=== PATIENT | male | born 1950 ===

== ENCOUNTER 2017-11-11 08:51 | Emergency (ER) | payer BC, OTHER ==
[2017-11-11 09:25] VITALS: BP 143/86
--- NOTE | 2017-11-11 09:41 | UC ---
Throat Pain/Nasal Lucio HPI - HPI Summary HPI Summary: Right sinus pain. He had uri about 5 days ago with chills and congestion. He felt better and then has had right sinus pain. He also had right upper molar dental trauma but there is no hot or cold sensitivity there. NO fever. - History of Current Complaint Chief Complaint: UCRespiratory Stated Complaint: SINUS Time Seen by Provider: 11/11/17 09:07 Hx Obtained From: Patient Onset/Duration: Gradual Onset, Lasting Days Severity: Moderate Pain Intensity: 5 Cough: None Associated Signs & Symptoms: Positive: Sinus Discomfort. Negative: Dysphagia, FB Sensation, Fever, Vomiting, Rash - Allergies/Home Medications Allergies/Adverse Reactions: Allergies Allergy/AdvReac Type Severity Reaction Status Date / Time No Known Allergies Allergy Verified 11/11/17 09:08 Home Medications: Home Medications Acetaminophen [Acetaminophen Extra Stren] 1,000 mg PO Q6H PRN 11/11/17 [History Confirmed 11/11/17] Aspirin [Aspirin 81 MG TAB] 81 mg PO QPM 11/11/17 [History Confirmed 11/11/17] Atorvastatin* [Lipitor*] 20 mg PO QPM 11/11/17 [History Confirmed 11/11/17] Cholecalciferol [Vitamin D] 1,000 unit PO DAILY 11/11/17 [History Confirmed ] Irbesartan [Avapro] 150 mg PO QPM 11/11/17 [History Confirmed 11/11/17] Multivitamins/Minerals TAB* [Theragran/minerals TAB*] 1 tab PO DAILY 11/11/17 [ History Confirmed 11/11/17] Vado-3 Fatty Acids [Fish Oil] 2,400 mg PO DAILY 11/11/17 [History Confirmed ] Phenylephrine HCl (Oral) [Sudafed PE Congestion] 10 mg PO Q6H PRN 11/11/17 [ History Confirmed 11/11/17] PMH/Surg Hx/FS Hx/Imm Hx Previously Healthy: No - htn - Surgical History Surgical History: None Surgery Procedure, Year, and Place: molars; left facial fxs 1969; abdominal hernia with mesh within 10 yrs; - Family History Known Family History: Positive: Other - htn - Social History Alcohol Use: Occasionally Substance Use Type: None Smoking Status (MU): Never Smoked Tobacco Review of Systems ENT: Sinus Congestion, Sinus Pain/Tenderness All Other Systems Reviewed And Are Negative: Yes Physical Exam Triage Information Reviewed: Yes Appearance: Well-Appearing, No Pain Distress, Well-Nourished Vital Signs: Initial Vital Signs Temp 98.3 F 11/11/17 09:14 Pulse 80 11/11/17 09:14 Resp 18 11/11/17 09:14 BP 143/86 11/11/17 09:14 Pulse Ox 99 11/11/17 09:14 Vital Signs Reviewed: Yes Eyes: Positive: Conjunctiva Clear ENT: Positive: Normal ENT inspection, Pharynx normal, TMs normal, Sinus tenderness. Negative: Tonsillar swelling, Tonsillar exudate, Trismus, Muffled voice, Hoarse voice, Dental tenderness, Uvula midline Neck: Positive: Supple, Nontender, No Lymphadenopathy Respiratory: Positive: Chest non-tender, Lungs clear, Normal breath sounds, No respiratory distress, No accessory muscle use. Negative: Respiratory distress, Decreased breath sounds, Accessory muscle use, Crackles, Rhonchi, Stridor Cardiovascular: Positive: RRR, No Murmur, Pulses Normal Abdomen Description: Positive: Nontender, No Organomegaly, Soft. Negative: Distended, Guarding Musculoskeletal: Positive: Strength Intact, ROM Intact. Negative: No Edema Neurological: Positive: Alert, Muscle Tone Normal. Negative: Fatigued Psychological: Positive: Normal Response To Family, Age Appropriate Behavior Skin: Negative: rashes Throat Pain/Nasal Course/Dx - Course Course Of Treatment: dental exam is benign. - Differential Dx/Diagnosis Provider Diagnoses: right sinusitis. Discharge - Discharge Plan Condition: Good Disposition: HOME Prescriptions: Amoxicillin PO (*) [Amoxicillin 500 MG CAP*] 500 mg PO TID #30 cap Patient Education Materials: Sinusitis (ED) Referrals: Wale Rod MD [Primary Care Provider] -
== END 2017-11-11 09:46 | disposition home or self-care (01) ==
LOC: UCCORT 08:51
DX: J32.9 Chronic sinusitis, unspecified (principal); I10 Essential (primary) hypertension; Z79.82 Long term (current) use of aspirin
CPT/HCPCS: 99202; G0463